=== PATIENT | female | born 1995 | race African-American/Black ===

== ENCOUNTER 2023-01-24 16:59 | Emergency (ER) | payer SELFPAY ==
[2023-01-24 17:22] VITALS: RESP 18; TEMP 98.6; BMI 29.7
[2023-01-24 18:21] LABS: EPITHELIAL CELLS FEW /hpf
[2023-01-24 18:22] VITALS: BP 153/96; PULSE 89
== END 2023-01-24 18:42 | disposition home or self-care (01) ==
LOC: FER 16:59
DX: O26.891 Other specified pregnancy related conditions, first trimester (principal); R10.9 Unspecified abdominal pain; R11.0 Nausea; Z3A.00 Weeks of gestation of pregnancy not specified
CPT/HCPCS: 81003; 81015; 84703; 87086; 99283-25